=== PATIENT | female | born 1970 | race Caucasian/White ===

== ENCOUNTER 2017-01-15 20:54 | Observation (INO) | payer BC ==
[2017-01-15] MEDS ORDERED: ASPIRIN 81 MG TABLET, CHEWABLE PO ONE (22:19)
[2017-01-15 23:19] LABS: ABSOLUTE LYMPHOCYTES (AUTO) 0.8 10^3/uL (0.5-4.7); ABSOLUTE MONOCYTES (AUTO) 0.5 10^3/uL (0.1-1.4); ABSOLUTE NEUT (AUTO) 10.1 10^3/uL (1.7-8.2); BASOPHILS % (AUTO) 0.2 % (0-2); EOSINOPHILS % (AUTO) 0.1 % (0-6); HEMATOCRIT 38.3 % (36.0-47.0); HGB HCT DIFFERENCE 0.7; LYMPHOCYTES % (AUTO) 6.8 % (13-45); MEAN CORPUSCULAR HEMOGLOBIN 30.8 pg (27.0-33.4); MEAN CORPUSCULAR HGB CONC 33.9 g/dL (32.0-36.0); MEAN CORPUSCULAR VOLUME 91 fl (80-97); RED BLOOD COUNT 4.22 10^6/uL (3.72-5.28); RED CELL DISTRIBUTION WIDTH 14.1 % (11.5-14.0); SEGMENTED NEUTROPHILS % (AUTO) 88.9 % (42-78); WHITE BLOOD COUNT 11.4 10^3/uL (4.0-10.5)
--- NOTE | 2017-01-16 00:10 | ER Document Report ---
ED General - General Mode of Arrival: Wheelchair Information source: Patient TRAVEL OUTSIDE OF THE [place] IN LAST 30 DAYS: No - HPI Onset: This afternoon Associated symptoms: Nausea, Vomiting. denies: Diarrhea Similar symptoms previously: No Recently seen / treated by doctor: No <MARY KHALIL - Last Filed: 01/16/17 05:28> <GERRYCLEVELAND YANNICK - Last Filed: 01/16/17 06:40> - General Chief Complaint: Chest Pain Stated Complaint: CHEST PAIN Time Seen by Provider: 01/15/17 23:51 Notes: Patient is a 46-year-old female presenting to the emergency department for abdominal pain. Patient states her pain was onset at around 11:00 or 12:00 this morning. Patient states that she feels like she is trying to catch her breath because of the pain. Patient's pain is sometimes worse after intake of food. Patient's pain is exacerbated with deep breathing. Patient is also had some nausea and vomiting but denies any diarrhea. Patient denies any abdominal surgeries except for an emergency section about 15 years ago. Patient is down here on vacation. Patient does not take any daily medications or supplements. Patient has not had any new changes to her diet or started any new medications. Patient does not have any known drug allergies. (MARY KHALIL) - Related Data Allergies/Adverse Reactions: No Known Allergies Allergy (Unverified 01/16/17 05:32) Home Medications: Current Home Medications Levothyroxine Sodium [Synthroid 0.075 mg Tablet] 0.075 mg PO DAILY 01/16/17 [ History] Past Medical History - General Information source: Patient, Relative - Spouse - Social History Smoking Status: Never Smoker Cigarette use (# per day): No Chew tobacco use (# tins/day): No Smoking Education Provided: No Frequency of alcohol use: None Drug Abuse: None Family History: None Patient has suicidal ideation: No Patient has homicidal ideation: No - Medical History Medical History: Negative Past Surgical History: Reports: Hx Section - Immunizations Hx Diphtheria, Pertussis, Tetanus Vaccination: Yes <MARY KHALIL - Last Filed: 01/16/17 05:28> Review of Systems - Review of Systems Constitutional: No symptoms reported EENT: No symptoms reported Cardiovascular: No symptoms reported Respiratory: No symptoms reported Gastrointestinal: See HPI, Abdominal pain, Nausea, Vomiting. denies: Diarrhea Genitourinary: No symptoms reported Female Genitourinary: No symptoms reported Musculoskeletal: No symptoms reported Skin: No symptoms reported Hematologic/Lymphatic: No symptoms reported Neurological/Psychological: No symptoms reported -: Yes All other systems reviewed and negative <SIMRANMARY - Last Filed: 01/16/17 05:28> Physical Exam - Vital signs Interpretation: Normal <SIMRANARLENEMARY - Last Filed: 01/16/17 05:28> <CLEVELAND GARRETT - Last Filed: 01/16/17 06:40> - Vital signs Vitals: Temp Pulse Resp BP Pulse Ox 97.6 F 55 L 22 H 102/69 100 01/15/17 21:24 01/15/17 21:24 01/15/17 21:24 01/15/17 21:24 01/15/17 21:24 - Notes Notes: GENERAL: Alert, interacts well. No acute distress. HEAD: Normocephalic, atraumatic. EYES: Appear normal. Pupils equal, round, and reactive to light. ENT: Moist mucus membranes, tongue midline. NECK: Full range of motion. Supple. Trachea midline. LUNGS: Clear to auscultation bilaterally, no wheezes, rales, or rhonchi. No respiratory distress. HEART: Regular rate and rhythm. No murmurs, gallops, or rubs. ABDOMEN: Soft, epigastric tenderness to palpation. Non-distended. Normal bowel sounds. EXTREMITIES: Moves all 4 extremities spontaneously. Normal strength. No edema. NEUROLOGICAL: Alert and oriented x3. Normal speech. No focal neurological deficits. GSC 15. PSYCH: Normal affect, normal mood. SKIN: Warm, dry, normal turgor. No rashes or lesions noted. (MARY KHALIL) Course - Laboratory Result Diagrams: 01/15/17 22:50 01/16/17 00:49 <MARY KHALIL - Last Filed: 01/16/17 05:28> - Laboratory Result Diagrams: 01/15/17 22:50 01/16/17 00:49 <CLEVELAND GARRETT - Last Filed: 01/16/17 06:40> - Re-evaluation Re-evalutation: 01/16/17 05:00 Patient is a 46-year-old female who initially presented with chest pain and epigastric pain and one episode of nausea and vomiting. Patient with no acute findings on blood work and some mild sludge on ultrasound. Patient is feeling better but still having some pain. Patient did trial p.o. fluids and felt immediately worse. CT scan ordered which is showing acute appendicitis. Surgery has been consulted will admit the patient. Discussed results with patient and that she will need to be admitted to the hospital and go to the OR. Understands and agrees with this plan at this time. (CLEVELAND GARRETT) - Vital Signs Vital signs: Temp Pulse Resp BP Pulse Ox 97.6 F 62 16 96/60 L 100 01/16/17 06:15 01/16/17 06:15 01/16/17 06:15 01/16/17 06:15 01/16/17 06:15 - Laboratory Laboratory results interpreted by me: 01/15/17 01/15/17 01/16/17 22:25 22:50 00:49 WBC 11.4 H RDW 14.1 H Seg Neutrophils % 88.9 H Lymphocytes % 6.8 L Absolute Neutrophils 10.1 H Sodium 135.8 L Urine Ketones 80 H Urine Blood SMALL H Ur Leukocyte Esterase LARGE H Discharge <MARY KHALIL - Last Filed: 01/16/17 05:28> - Discharge Admitting Provider: Surgicalist - [facility] Unit Admitted: Surgical Floor <CLEVELAND GARRETT - Last Filed: 01/16/17 06:40> - Discharge Clinical Impression: Appendicitis Qualifiers: Appendicitis type: acute appendicitis Acute appendicitis type: unspecified acute appendicitis type Qualified Code(s): K35.80 - Unspecified acute appendicitis Condition: Stable Disposition: ADMITTED INPATIENT Scribe Attestation: 01/16/17 06:40 I personally performed the services described in the documentation, reviewed and edited the documentation which was dictated to the scribe in my presence, and it accurately records my words and actions. (CLEVELAND GARRETT) Scribe Documentation - Scribe Written by Scribe:: Ladi Flores, 01/16/2017 3:14 acting as scribe for :: Gerry <MARY KHALIL - Last Filed: 01/16/17 05:28>
[2017-01-16] MEDS ORDERED: SUCRALFATE 1 GM TABLET PO ONE (00:48)
[2017-01-16] MEDS ORDERED: ONDANSETRON 4 MG TAB.RAPDIS PO ONE (00:48)
[2017-01-16] MEDS ORDERED: FAMOTIDINE 20 MG TABLET PO ONE (00:48)
[2017-01-16] MEDS ORDERED: MORPHINE SULFATE 10 MG/ML INJ IV ONE ×2 (01:08→04:06)
[2017-01-16] MEDS ORDERED: ONDANSETRON HCL INJ/PF 4 MG/2 ML SDV IV ONE (01:08)
[2017-01-16 01:36] LABS: ALANINE AMINOTRANSFERASE 25 U/L (9-52); ALBUMIN 4.1 g/dL (3.5-5.0); ALKALINE PHOSPHATASE 57 U/L (38-126); ANION GAP 9 (5-19); ASPARTATE AMINO TRANSFERASE 27 U/L (14-36); BILIRUBIN,DIRECT 0.3 mg/dL (0.0-0.4); BILIRUBIN,TOTAL 0.8 mg/dL (0.2-1.3); BLOOD UREA NITROGEN 14 mg/dL (7-20); CALCIUM 9.4 mg/dL (8.4-10.2); CARBON DIOXIDE 23 mmol/L (22-30); CHLORIDE 104 mmol/L (98-107); CREATINE KINASE 90 U/L (30-135); CREATININE RESULT 0.56 mg/dL (0.52-1.25); GLUCOSE 105 mg/dL (75-110); POTASSIUM 4.5 mmol/L (3.6-5.0); SODIUM 135.8 mmol/L (137-145); TOTAL PROTEIN 6.8 g/dL (6.3-8.2)
[2017-01-16 01:46] LABS: CREATINE KINASE MB 0.51 ng/mL (<4.55); TROPONIN I < 0.012 ng/mL
[2017-01-16 02:02] LABS: APPEARANCE,URINE CLOUDY; BILIRUBIN,URINE NEGATIVE (NEGATIVE); GLUCOSE, URINE NEGATIVE (NEGATIVE); KETONES,URINE 80 mg/dL (NEGATIVE); LEUKOCYTE ESTERASE,URINE LARGE (NEGATIVE); NITRITE,URINE NEGATIVE (NEGATIVE); PROTEIN,URINE NEGATIVE (NEGATIVE); URINE SPECIFIC GRAVITY 1.021; UROBILINOGEN,URINE NEGATIVE mg/dL (<2.0)
[2017-01-16] MEDS ORDERED: NORMAL SALINE 1000 ML 1,000 ML IV ONE ×2 (03:15→04:08)
[2017-01-16] MEDS ORDERED: PIPERACILLIN/TAZOBACTAM 3.375 GM VIAL IV ONE (04:44)
--- NOTE | 2017-01-16 06:12 | HISTORY AND PHYSICAL E ---
History and Physical NAME: CARMEN LICONA : 1970 AGE: 46Y ADMITTED: 01/16/2017 ROOM: ED12 CHIEF COMPLAINT: Abdominal pains. HISTORY OF PRESENT ILLNESS: This is a 46-year-old female who complained of epigastric pains on 01/15/2017 around noontime associated with mild nausea and anorexia. She went to the emergency room last night and had a CAT scan this morning, which showed acute appendicitis. Also, her pain is localized in the right lower quadrant this morning. REVIEW OF SYSTEMS: Denies any fever nor vomiting. HEENT: No visual or hearing problems. CARDIOVASCULAR: No chest pains. RESPIRATORY: No shortness of breath. GASTROINTESTINAL: As in HPI. Abdominal pains localized in the right lower quadrant this morning. No diarrhea, no constipation. GENITOURINARY: No dysuria. GYNECOLOGIC: No vaginal discharge. MUSCULOSKELETAL: No joint pains. NEUROLOGIC: No confusion or seizures. Rest of the systems reviewed and unremarkable. SOCIAL HISTORY: Denies smoking. Admits to social drinking just wine. PAST HISTORY: History of hypothyroidism and takes Synthroid. FAMILY HISTORY: Noncontributory. ALLERGIES: No known. PHYSICAL EXAMINATION: GENERAL: Well-developed, well-nourished 46-year-old female alert and oriented, complaining of abdominal pains. NECK: Supple. No thyromegaly. LUNGS: Clear. HEART: Regular sinus rhythm. ABDOMEN: Soft with tenderness and rebound in the right lower quadrant. EXTREMITIES: No edema. IMPRESSION: 1. Acute appendicitis. 2. Hypothyroidism. PLAN: Hydration and IV antibiotics and for laparoscopic appendectomy by Dr. Cagle today. DICTATING PHYSICIAN: BONNIE FRAZIER M.D. [id number] PHY#: [id number] ID: [id number] JOB#: [id number] ACCT: [id number] cc:BONNIE FRAZIER M.D. NO King PEREZ
[2017-01-16] MEDS ORDERED: NORMAL SALINE 1000 ML 1,000 ML IV PRN (07:12)
[2017-01-16] MEDS ORDERED: HYDROMORPHONE HCL INJ/PF 2 MG/ML AMPULE IV PRN ×2 (07:13→08:00)
[2017-01-16] MEDS ORDERED: MORPHINE SULFATE 10 MG/ML INJ IV PRN ×2 (08:11→11:20)
--- NOTE | 2017-01-16 08:14 | PDOC PROGRESS REPORT ---
Subjective Progress Note for:: 01/16/17 Subjective:: Patient complains of right lower quadrant abdominal pain for the past day. Pain worsening. No prior history of this sort of abdominal pain. Had a colonoscopy about 3 years ago that was okay. Physical Exam Vital Signs: Temp Pulse Resp BP Pulse Ox 97.6 F 62 16 96/60 L 100 01/16/17 06:15 01/16/17 06:15 01/16/17 06:15 01/16/17 06:15 01/16/17 06:15 General appearance: PRESENT: no acute distress, cooperative GI/Abdominal exam: PRESENT: other - Soft, nondistended, focal tenderness to palpation in the right lower quadrant with voluntary guarding. Assessment & Plan - Diagnosis (1) Appendicitis Qualifiers: Appendicitis type: acute appendicitis Acute appendicitis type: unspecified acute appendicitis type Qualified Code(s): K35.80 - Unspecified acute appendicitis Is this a current diagnosis for this admission?: Yes Plan: Most likely appendicitis. Plan laparoscopic appendectomy possible open appendectomy. I have had a discussion with the patient the risk and benefits of the surgery including risk of mistaken diagnosis, stump leak, adjacent structure injury, bleeding, infection. Patient understands and agrees to proceed.
--- NOTE | 2017-01-16 08:18 | EKG REPORT ---
SEVERITY:- NORMAL ECG - SINUS RHYTHM : Confirmed by: Obdulio Noel MD 16-Jan-2017 08:17:26
[2017-01-16] MEDS ORDERED: MIDAZOLAM 2 MG/2 ML INJ ONE (08:58)
[2017-01-16] MEDS ORDERED: FENTANYL CITRATE INJ/PF 100 MCG/2 ML AMPUL ONE (08:58)
[2017-01-16] MEDS ORDERED: BUPIVACAINE HCL 0.25 % INJ/PF (2.5 MG/1 ML) 30 ML VIAL ONE (08:58)
[2017-01-16] MEDS ORDERED: HYDROMORPHONE HCL INJ/PF 2 MG/ML AMPULE ONE (08:58)
[2017-01-16] MEDS ORDERED: EPHEDRINE SULFATE INJ 50 MG/1 ML AMPULE ONE (08:58)
[2017-01-16] MEDS ORDERED: ACETAMINOPHEN 100 ML IV ONE (08:59)
[2017-01-16] MEDS ORDERED: PROPOFOL INJ 200 MG/20 ML VIAL IV ONE (08:59)
[2017-01-16] MEDS ORDERED: ONDANSETRON HCL INJ/PF 4 MG/2 ML SDV IV PRN ×2 (10:00→11:20)
[2017-01-16] MEDS ORDERED: MEPERIDINE HCL/PF INJ 25 MG/1 ML DISP.SYRIN IV PRN (10:00)
[2017-01-16] MEDS ORDERED: FENTANYL CITRATE INJ/PF 100 MCG/2 ML AMPUL IV PRN ×3 (10:00)
[2017-01-16] MEDS ORDERED: DIPHENHYDRAMINE HCL 50 MG/ML VIAL IV PRN (10:00)
[2017-01-16] MEDS ORDERED: AMPICILLIN SOD/SULBACTAM 1.5 GM VIAL ONE (10:12)
[2017-01-16] MEDS ORDERED: DEXTROSE 5%-LACTATED RINGERS 1,000 ML IV PRN (11:20)
--- NOTE | 2017-01-16 11:20 | Operative Report ---
Operative Report DATE OF SURGERY: 01/16/17 PREOPERATIVE DIAGNOSIS: Appendicitis POSTOPERATIVE DIAGNOSIS: Appendicitis OPERATION: Laparoscopic appendectomy SURGEON: JACK CAREY ANESTHESIA: GA TISSUE REMOVED OR ALTERED: Appendix COMPLICATIONS: None ESTIMATED BLOOD LOSS: Minimal INTRAOPERATIVE FINDINGS: Markedly distended inflamed but not perforated appendix PROCEDURE: Informed consent was obtained. Patient was brought to the operating room placed on the operating room table in the supine position. After satisfactory induction of general anesthesia patient's abdomen was prepped and draped in usual sterile fashion. A supraumbilical midline incision was made dissection carried down through the fascia and the peritoneal cavity was entered. Silva trocar was inserted and pneumoperitoneum produced with good patient toleration. A 5 mm trocar was placed in the right lateral abdomen lateral to the rectus above the level of the umbilicus. Another 5 mm trocar was placed in the left lateral abdomen lateral to the rectus below the level of the umbilicus. Patient 's colon was distended making visualization difficult. Patient was placed in a Trendelenburg position with the right side up. The appendix was markedly inflamed and adhered to the lateral surface of the cecum. This adhesion was gently teased away there was no evidence of perforation. A plane was created between the mesoappendix and the appendix at the base of the appendix. Using a Endo LUIS MANUEL stapling device the appendix was taken flush with the cecum. The stump closure appeared secure. The mesoappendix was taken using a vascular load of the Endo LUIS MANUEL stapling device. Hemostasis appeared good. The operative field was lightly irrigated and irrigant aspirated out. The appendix was placed in an Endobag and removed through the Silva trocar site fascial defect. All trochars were removed under the direct vision of the laparoscope to ensure hemostasis. The Silva trocar site fascial defect was closed with interrupted Vicryl sutures. All skin incisions were closed with subcuticular interrupted Monocryl sutures. Marcaine was injected at the operative sites. Patient tolerated procedure well with no apparent complications and was taken to the recovery area in stable condition.
[2017-01-16] MEDS ORDERED: ONDANSETRON HCL INJ/PF 4 MG/2 ML SDV ONE (11:53)
[2017-01-16] MEDS ORDERED: ROCURONIUM BROMIDE INJ 50 MG/5 ML VIAL IV ONE (11:53)
[2017-01-16] MEDS ORDERED: GLYCOPYRROLATE INJ 0.4 MG/2 ML VIAL ONE (11:53)
[2017-01-16] MEDS ORDERED: DEXAMETHASONE SOD PHOSPHATE INJ 4 MG/1 ML VIAL ONE (11:53)
[2017-01-16] MEDS ORDERED: NEOSTIGMINE METHYLSULFATE 10 MG/10 ML VIAL ONE (11:53)
--- NOTE | 2017-01-16 16:47 | PDOC PROGRESS REPORT ---
Subjective Progress Note for:: 01/16/17 Subjective:: Feels much better after surgery. Her preoperative abdominal pain has resolved. Physical Exam Vital Signs: Temp Pulse Resp BP Pulse Ox 97.7 F 72 18 96/57 L 100 01/16/17 16:00 01/16/17 16:00 01/16/17 16:00 01/16/17 16:00 01/16/17 16:00 Intake & Output 01/15/17 01/16/17 01/17/17 06:59 06:59 06:59 Intake Total 1700 Output Total 420 Balance 1280 Weight 64.3 kg General appearance: PRESENT: no acute distress, cooperative Respiratory exam: PRESENT: clear to auscultation saul Cardiovascular exam: PRESENT: RRR GI/Abdominal exam: PRESENT: other - Soft, nondistended, minimal tenderness. Right lower quadrant abdominal tenderness has resolved. Assessment & Plan - Diagnosis (1) Appendicitis Qualifiers: Appendicitis type: acute appendicitis Acute appendicitis type: unspecified acute appendicitis type Qualified Code(s): K35.80 - Unspecified acute appendicitis Is this a current diagnosis for this admission?: Yes Plan: Looks good after laparoscopic appendectomy. Will discharge patient home tomorrow. I will see the patient back for follow-up in my office on Friday. If she appears well, will give her the clearance to travel back to [place].
[2017-01-17] MEDS: OXYCODONE-ACETAMINOPHEN 5-325 MG TABLET PO PRN ×2 (05:57→10:09)
--- NOTE | 2017-01-17 10:41 | PDOC PROGRESS REPORT ---
Subjective Progress Note for:: 01/17/17 Subjective:: the patient has no complaints Physical Exam Vital Signs: Temp Pulse Resp BP Pulse Ox 97.8 F 66 14 98/59 L 99 01/17/17 07:11 01/17/17 07:11 01/17/17 07:11 01/17/17 07:11 01/17/17 07:11 Intake & Output 01/16/17 01/17/17 01/18/17 06:59 06:59 06:59 Intake Total 3240 Output Total 420 Balance 2820 Weight 64.3 kg 71 kg Respiratory exam: PRESENT: clear to auscultation saul Cardiovascular exam: PRESENT: RRR GI/Abdominal exam: PRESENT: soft, other - all wounds are c/d/i Assessment & Plan - Diagnosis (1) Appendicitis Qualifiers: Appendicitis type: acute appendicitis Acute appendicitis type: unspecified acute appendicitis type Qualified Code(s): K35.80 - Unspecified acute appendicitis Is this a current diagnosis for this admission?: Yes - Plan Summary Plan Summary: A/ POD #1 after laparoscopic appendectomy for acute appendicitis patient tolerating po well VSSAF Physical exam unremarkable with abdomen soft an incisions c/d/i P/ Home today F/U with Dr. Cagle on 01/20 shower immediately, bath in 2 weeks apply dry gauze to umbilical wound prn; no other wound care needed Regular diet Activities as tolerated, no limitations Tylenol/Aleve prn pain
[2017-01-17 10:58] VITALS: BP 97/55
--- NOTE | 2017-01-17 11:12 | DISCHARGE SUMMARY E ---
Discharge Summary NAME: CARMEN LICONA : 1970 AGE: 46Y ADMITTED: 01/16/2017 DISCHARGED: 01/17/2017 FINAL DIAGNOSIS: Acute appendicitis. PROCEDURE: On 01/16/2017, the patient underwent laparoscopic appendectomy. COMPLICATIONS: None. HOSPITAL COURSE: This is a healthy 46-year-old female who presented to the hospital with right upper quadrant abdominal pain on 01/16/2017. She underwent a CT scan demonstrating an acute appendicitis. She was taken to surgery on the same day and underwent a laparoscopic appendectomy which was uneventful. The patient was then transferred to the floor. Her postop course was uneventful. The patient was able to tolerate a regular diet. On the day of discharge the patient was asymptomatic, her vital signs were stable, abdominal exam was unremarkable with incisions clean, dry, and intact except for umbilical incision which presented some mild serosanguineous drainage. No cellulitis was identified. The patient was discharged home on 01/17/2017. She was given a follow-up appointment with Dr. Cagle in the office on 01/20/2017. However, the patient is planning to leave for [place] tomorrow and is planning to see her primary care physician next week, 01/20/2017. She was given Tylenol 325 mg p.o. every 6 hours p.r.n. for pain and Aleve 220 mg p.o. b.i.d. p.r.n. for pain. She was instructed to have a regular diet, shower only for about 2 weeks, then she can bathe. No wound care needed; she was instructed to resume her home medications and normal activities as tolerated. DICTATING PHYSICIAN: JEAN-PIERRE CHASE M.D. [id number] PHY#: [id number] ID: [id number] JOB#: [id number] ACCT: [id number] cc:Joselin KIDD Skye [facility]
--- NOTE | 2017-01-17 14:17 | RADIOLOGY REPORT (SQ) ---
EXAM DESCRIPTION: CHEST SINGLE VIEW COMPLETED DATE/TIME: 01/15/2017 11:01 pm REASON FOR STUDY: CP COMPARISON: None. EXAM PARAMETERS: NUMBER OF VIEWS: One view. TECHNIQUE: Single frontal radiographic view of the chest acquired. RADIATION DOSE: NA LIMITATIONS: None. FINDINGS: LUNGS AND PLEURA: No opacities, masses or pneumothorax. No pleural effusion. MEDIASTINUM AND HILAR STRUCTURES: No masses. Contour normal. HEART AND VASCULAR STRUCTURES: Heart normal in size. Normal vasculature. BONES: No acute findings. HARDWARE: None in the chest. OTHER: No other significant finding. IMPRESSION: NO ACUTE RADIOGRAPHIC FINDING IN THE CHEST. TECHNICAL DOCUMENTATION: JOB ID: [id number]
--- NOTE | 2017-01-20 12:01 | RADIOLOGY REPORT (SQ) ---
EXAM DESCRIPTION: CT ABD/PELVIS WITH IV ONLY COMPLETED DATE/TIME: 01/16/2017 4:50 am REASON FOR STUDY: upper abd pain, n/v COMPARISON: Ultrasound, abdomen, 01/16/2017. LIMITATIONS: None. CONTRAST TYPE AND DOSE: 66 cc of Isovue 370 IV contrast FINDINGS: 1.4 cm diameter fluid-filled hip inflamed appendix with at 2 appendicular at this and mode rate periappendiceal inflamed fat in the right lateral pelvis. Small free pelvic fluid. Subcentimeter low-attenuation lesions of bilateral kidneys corresponding with sonographic abnormality consistent with likely benign cysts and/or angiomyolipoma, not definitively characterized. Inferior chest, liver, spleen, adrenals, gallbladder, pancreas, vasculature, remaining gastrointestin al tract, IUD, and pelvic organs appear otherwise unremarkable. Intact muscle skeleton. IMPRESSION: Acute appendicitis. Discussed with Dr. Leon, 0441 hrs, 01/16/17. TECHNICAL DOCUMENTATION: JOB ID: [id number] [employer]- All Rights Reserved
--- NOTE | 2017-01-20 12:20 | RADIOLOGY REPORT (SQ) ---
EXAM DESCRIPTION: U/S ABDOMEN LTD W/DOPPLER COMPLETED DATE/TIME: 01/16/2017 2:13 am REASON FOR STUDY: upper abd pain , n/v COMPARISON: None. TECHNIQUE: Dynamic and static grayscale images acquired of the abdomen and recorded on PACS. Additio nal selected color Doppler and spectral images recorded. LIMITATIONS: None. FINDINGS: 0.6 cm echogenic focus of the inferior pole of the right kidney may indicate an angiomyoli shailesh or other neoplasm. Small echogenic subcentimeter gallstone/ sludge. Gallbladder wall thickness is 0.2 cm. Neck sonograp hic Mae's test is negative. Common bile duct diameter is 0.3 cm. Pancreas, aorta, liver, portal vein appear otherwise unremarkable. IMPRESSION: 1. 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 Francisca elation with dynamic contrast CT of the kidneys recommended. 2. Cholelithiasis. TECHNICAL DOCUMENTATION: JOB ID: [id number] [employer]- All Rights Reserved
== END 2017-01-17 11:12 | disposition other institution (70) ==
LOC: ER 20:54 → EH 01-16 05:23 → INTOOBSV 01-16 05:23 → 4S 01-16 07:00
PROVIDERS: ATTEND Surgery
PROC: 0DTJ4ZZ Resection of Appendix, Percutaneous Endoscopic Approach (ICD-10-PCS; principal; 2017-01-16 09:00)
DX: K35.3 Acute appendicitis with localized peritonitis (principal); K63.89 Other specified diseases of intestine; E03.9 Hypothyroidism, unspecified; Z79.899 Other long term (current) drug therapy
CPT/HCPCS: 44970; 93005; 96376; 99285; 96361; 96375; 96365; 36415 ×2; 82553; 82550; 83690; 85025; 80053; 81001; 84484 ×2; 88304 ×2; 71010; 76705; 93976; 74177; 93010; G0378 ×2; J2250; J3490 ×3; J1100; S0119; J3010; J2270; J1170; J0295; J2405; J7030; J2704; J2543; J0131; 840